=== PATIENT | male | born 1930 | race Caucasian/White ===

== ENCOUNTER 2016-08-31 10:45 | Inpatient (IN) | payer OTHER ==
[~2016-08-31] VITALS: Ht 180.3 cm; Wt 110.4 kg
[~2016-08-31 10:45] MED LIST: BACITRACIN 50,000 UNITS INJ IRRIG ONE
[2016-08-31] MEDS ORDERED: ONDANSETRON 4 MG VIAL ONE (12:07)
[2016-08-31] MEDS ORDERED: MORPHINE 2 MG/ML SYR ONE (12:08)
[2016-08-31 16:21] VITALS: BP_SYST 153; RESP 22; TEMP 98; BMI 34.0
[2016-08-31] MEDS ORDERED: METHYLPRED SOD SUCC 125 MG/2 ML VIAL ONE (16:47)
[2016-08-31] MEDS ORDERED: PANTOPRAZOLE 40 MG TAB PO PRN (18:00)
[2016-08-31] MEDS ORDERED: LACTULOSE SOLN 20GM/30ML UDC PO PRN (18:00)
[2016-08-31] MEDS ORDERED: Furosemide 40 MG TAB PO SCH (18:00)
[2016-08-31 19:24] VITALS: BP_SYST 119; RESP 16; TEMP 98.1
[2016-08-31] MEDS: LEVEMIR INSULIN SUBQ SCH (21:00)
[2016-08-31] MEDS ORDERED: ENOXAPARIN 30 MG/0.3 ML SYR SUBQ SCH (21:00)
[2016-08-31] MEDS ORDERED: DEXTROSE 50% SYRINGE 50 ML IV PRN (21:10)
[2016-08-31] MEDS ORDERED: GLUCAGON 1 MG VIAL IM PRN (21:10)
[2016-08-31] MEDS: LISINOPRIL 20 MG TAB PO SCH (22:38)
[2016-08-31] MEDS: ROSUVASTATIN 5 MG TAB PO SCH (22:38)
[2016-08-31] MEDS: SPIRONOLACTONE 25 MG TAB PO SCH (22:39)
[2016-08-31] MEDS: METOPROLOL TART 25 MG TAB PO SCH (22:39)
[2016-08-31] MEDS: Furosemide 40 MG TAB PO SCH (22:39)
[2016-08-31] MEDS: AMITRIPTYLINE 25 MG TAB PO SCH (22:39)
[2016-08-31] MEDS: TAMSULOSIN 0.4 MG CAP PO SCH (22:39)
[2016-08-31 22:59] VITALS: BP_SYST 141; RESP 18; TEMP 98.3
[2016-08-31] MEDS: MORPHINE 2 MG/ML SYR IV PRN (23:24)
[2016-09-01] VITALS (25 sets, daily range): BP systolic 88–140; RESP 14–24; TEMP 97–99.1
[2016-09-01] MEDS: MORPHINE 2 MG/ML SYR IV PRN (02:25)
[2016-09-01] MEDS ORDERED: LACT RINGERS 1,000 ML IV SCH (05:40)
[2016-09-01] MEDS ORDERED: GLYCOPYRROLATE 0.2 MG/ML VIAL IV ONE (05:40)
[2016-09-01] MEDS ORDERED: MIDAZOLAM 2 MG/2 ML INJ IV ONE (05:40)
[2016-09-01] MEDS ORDERED: CEFAZOLIN 2,000 MG in SODIUM CHLORIDE 0.9% 100 ML IV ONE (07:05)
[2016-09-01] MEDS ORDERED: MORPHINE 4 MG/ML SYR IV PRN (08:25)
[2016-09-01] MEDS ORDERED: ONDANSETRON 4 MG VIAL IV PRN ×2 (08:25→09:20)
[2016-09-01] MEDS ORDERED: MORPHINE 2 MG/ML SYR IV PRN ×2 (08:25→09:20)
[2016-09-01] MEDS ORDERED: OXYCODONE/APAP 5/325 TAB PO PRN (08:25)
[2016-09-01] MEDS: METOPROLOL TART 25 MG TAB PO SCH ×2 (09:00→21:02)
[2016-09-01] MEDS: Furosemide 40 MG TAB PO SCH ×2 (09:00→16:38)
[2016-09-01] MEDS ORDERED: ERGOCALCIFEROL 50,000 UNITS (1.25 MG) CAP PO SCH (09:00)
[2016-09-01] MEDS: SPIRONOLACTONE 25 MG TAB PO SCH ×2 (09:00→21:02)
[2016-09-01] MEDS: DOCUSATE SOD 100 MG CAP PO SCH ×2 (09:00→21:02)
[2016-09-01] MEDS ORDERED: DILAUDID 1 MG/ML AMP IV PRN (09:20)
[2016-09-01] MEDS ORDERED: OXYCODONE 5 MG TAB PO PRN (09:20)
[2016-09-01] MEDS: MORPHINE 4 MG/ML SYR IV PRN ×2 (10:29→10:46)
[2016-09-01] MEDS: CEFAZOLIN 2,000 MG in SODIUM CHLORIDE 0.9% 100 ML IV SCH ×2 (15:13→21:01)
[2016-09-01] MEDS: FLUCONAZOLE 100 MG in SODIUM CHLORIDE 0.9% 50 ML IV SCH (15:57)
[2016-09-01] MEDS: LISINOPRIL 20 MG TAB PO SCH (20:59)
[2016-09-01] MEDS: AMITRIPTYLINE 25 MG TAB PO SCH (21:02)
[2016-09-01] MEDS: ROSUVASTATIN 5 MG TAB PO SCH (21:02)
[2016-09-01] MEDS: TAMSULOSIN 0.4 MG CAP PO SCH (21:03)
[2016-09-01] MEDS: LEVEMIR INSULIN SUBQ SCH (21:21)
[2016-09-02] VITALS (10 sets, daily range): BP systolic 101–134; RESP 16–22; TEMP 97.4–98.5; Ht 180.3 cm; Wt 110.4 kg
[2016-09-02] MEDS: MORPHINE 2 MG/ML SYR IV PRN (00:52)
[2016-09-02] MEDS: CEFAZOLIN 2,000 MG in SODIUM CHLORIDE 0.9% 100 ML IV SCH ×2 (02:03→10:57)
[2016-09-02] MEDS: OXYCODONE/APAP 5/325 TAB PO PRN ×3 (02:09→22:02)
[2016-09-02] MEDS: FLUCONAZOLE 100 MG in SODIUM CHLORIDE 0.9% 50 ML IV SCH (09:25)
[2016-09-02] MEDS: SPIRONOLACTONE 25 MG TAB PO SCH ×2 (09:25→22:00)
[2016-09-02] MEDS: Furosemide 40 MG TAB PO SCH ×2 (09:26→16:47)
[2016-09-02] MEDS: DOCUSATE SOD 100 MG CAP PO SCH ×2 (09:26→22:00)
[2016-09-02] MEDS: METOPROLOL TART 25 MG TAB PO SCH ×2 (09:26→21:59)
[2016-09-02] MEDS: MICONAZOLE 2% PWD TOPICAL SCH ×2 (11:38→22:04)
[2016-09-02] MEDS: ROSUVASTATIN 5 MG TAB PO SCH (21:59)
[2016-09-02] MEDS: AMITRIPTYLINE 25 MG TAB PO SCH (21:59)
[2016-09-02] MEDS: LISINOPRIL 20 MG TAB PO SCH (22:00)
[2016-09-02] MEDS: TAMSULOSIN 0.4 MG CAP PO SCH (22:00)
[2016-09-02] MEDS: LEVEMIR INSULIN SUBQ SCH (22:01)
[2016-09-03] VITALS (18 sets, daily range): BP systolic 113–165; RESP 16–22; TEMP 97.1–98.6
[2016-09-03] MEDS: SPIRONOLACTONE 25 MG TAB PO SCH ×2 (08:08→21:55)
[2016-09-03] MEDS: Furosemide 40 MG TAB PO SCH ×2 (08:08→16:26)
[2016-09-03] MEDS: METOPROLOL TART 25 MG TAB PO SCH ×2 (08:08→21:55)
[2016-09-03] MEDS: DOCUSATE SOD 100 MG CAP PO SCH ×2 (08:08→21:00)
[2016-09-03] MEDS: FLUCONAZOLE 100 MG in SODIUM CHLORIDE 0.9% 50 ML IV SCH (08:08)
[2016-09-03] MEDS: MICONAZOLE 2% PWD TOPICAL SCH ×2 (08:17→22:02)
[2016-09-03] MEDS: TAMSULOSIN 0.4 MG CAP PO SCH (21:55)
[2016-09-03] MEDS: LISINOPRIL 20 MG TAB PO SCH (21:55)
[2016-09-03] MEDS: AMITRIPTYLINE 25 MG TAB PO SCH (21:56)
[2016-09-03] MEDS: ROSUVASTATIN 5 MG TAB PO SCH (21:56)
[2016-09-03] MEDS: LEVEMIR INSULIN SUBQ SCH (21:57)
[2016-09-04] VITALS (8 sets, daily range): BP systolic 107–134; RESP 16–22; TEMP 97.4–98.3
[2016-09-04] MEDS ORDERED: MISSING DOSE XX ONE (08:00)
[2016-09-04] MEDS: Furosemide 40 MG TAB PO SCH ×2 (08:15→16:44)
[2016-09-04] MEDS: METOPROLOL TART 25 MG TAB PO SCH ×2 (08:15→21:00)
[2016-09-04] MEDS: SPIRONOLACTONE 25 MG TAB PO SCH ×2 (08:15→21:00)
[2016-09-04] MEDS: DOCUSATE SOD 100 MG CAP PO SCH ×2 (08:15→20:16)
[2016-09-04] MEDS: FLUCONAZOLE 100 MG TAB PO SCH (08:16)
[2016-09-04] MEDS: MICONAZOLE 2% PWD TOPICAL SCH ×2 (08:18→21:00)
[2016-09-04] MEDS: OXYCODONE/APAP 5/325 TAB PO PRN (16:44)
[2016-09-04] MEDS: LISINOPRIL 20 MG TAB PO SCH (21:00)
[2016-09-04] MEDS: ROSUVASTATIN 5 MG TAB PO SCH (21:00)
[2016-09-04] MEDS: AMITRIPTYLINE 25 MG TAB PO SCH (21:00)
[2016-09-04] MEDS: TAMSULOSIN 0.4 MG CAP PO SCH (21:00)
[2016-09-04] MEDS: LEVEMIR INSULIN SUBQ SCH (22:58)
[2016-09-05 02:00] VITALS: BP_SYST 152; RESP 16; TEMP 97.8
[2016-09-05 07:27] VITALS: BP_SYST 134; RESP 18; TEMP 97.5
[2016-09-05] MEDS: SPIRONOLACTONE 25 MG TAB PO SCH ×2 (08:09→22:12)
[2016-09-05] MEDS: FLUCONAZOLE 100 MG TAB PO SCH (08:09)
[2016-09-05] MEDS: Furosemide 40 MG TAB PO SCH ×2 (08:09→17:26)
[2016-09-05] MEDS: DOCUSATE SOD 100 MG CAP PO SCH ×2 (08:09→22:11)
[2016-09-05] MEDS: METOPROLOL TART 25 MG TAB PO SCH ×2 (08:09→21:00)
[2016-09-05] MEDS: MICONAZOLE 2% PWD TOPICAL SCH ×2 (08:10→22:13)
[2016-09-05] MEDS: OXYCODONE/APAP 5/325 TAB PO PRN ×3 (08:16→17:26)
[2016-09-05 11:28] VITALS: BP_SYST 105; RESP 18; TEMP 97.5
[2016-09-05 15:00] VITALS: BP_SYST 121; RESP 20; TEMP 97.6
[2016-09-05 19:15] VITALS: BP_SYST 94; RESP 18; TEMP 98.2
[2016-09-05] MEDS ORDERED: SALINE FLUSH 10 ML FLUSH PRN (19:40)
[2016-09-05] MEDS ORDERED: SODIUM CHLORIDE 0.9% FLUSH BAG 500 ML IV PRN (19:40)
[2016-09-05] MEDS: LISINOPRIL 20 MG TAB PO SCH (21:00)
[2016-09-05] MEDS: ROSUVASTATIN 5 MG TAB PO SCH (22:11)
[2016-09-05] MEDS: AMITRIPTYLINE 25 MG TAB PO SCH (22:12)
[2016-09-05] MEDS: SALINE FLUSH 10 ML FLUSH SCH (22:12)
[2016-09-05] MEDS: LEVEMIR INSULIN SUBQ SCH (22:12)
[2016-09-05] MEDS: TAMSULOSIN 0.4 MG CAP PO SCH (22:12)
[2016-09-05 22:42] VITALS: BP_SYST 118; RESP 16; TEMP 97.2
[2016-09-06 02:42] VITALS: BP_SYST 127; RESP 16; TEMP 98.1
[2016-09-06 07:50] VITALS: BP_SYST 172; RESP 18; TEMP 98.9
[2016-09-06] MEDS: FLUCONAZOLE 100 MG TAB PO SCH (08:49)
[2016-09-06] MEDS: METOPROLOL TART 25 MG TAB PO SCH (08:49)
[2016-09-06] MEDS: SALINE FLUSH 10 ML FLUSH SCH (08:49)
[2016-09-06] MEDS: DOCUSATE SOD 100 MG CAP PO SCH (08:50)
[2016-09-06] MEDS: SPIRONOLACTONE 25 MG TAB PO SCH (08:50)
[2016-09-06] MEDS: Furosemide 40 MG TAB PO SCH (08:50)
[2016-09-06] MEDS: MICONAZOLE 2% PWD TOPICAL SCH (08:51)
[2016-09-06] MEDS: OXYCODONE/APAP 5/325 TAB PO PRN (08:57)
[2016-09-06 10:19] VITALS: BP_SYST 172; RESP 18; TEMP 98.9
[2016-09-06 11:32] VITALS: BP_SYST 93; RESP 18; TEMP 98.8
== END 2016-09-06 16:37 | DRG 481 ==
LOC: ENRESERVTM → ENRESERVDT → ER 10:45 → ENPENDDIS 14:21 → EMR 14:21 → 2NO 15:59
PROVIDERS: ADMIT Internal Medicine; ATTEND Internal Medicine
PROC: 0QH806Z Insertion of Intramedullary Internal Fixation Device into Right Femoral Shaft, Open Approach (ICD-10-PCS; principal; 2016-09-01 08:32)
DX: S72.401A Unspecified fracture of lower end of right femur, initial encounter for closed fracture (principal); I13.0 Hypertensive heart and chronic kidney disease with heart failure and stage 1 through stage 4 chronic kidney disease, or unspecified chronic kidney disease; E11.22 Type 2 diabetes mellitus with diabetic chronic kidney disease; N18.3 Chronic kidney disease, stage 3 (moderate); I50.9 Heart failure, unspecified; I48.91 Unspecified atrial fibrillation; J44.9 Chronic obstructive pulmonary disease, unspecified; B37.2 Candidiasis of skin and nail; D62 Acute posthemorrhagic anemia; R44.3 Hallucinations, unspecified; W18.30XA Fall on same level, unspecified, initial encounter; Y92.002 Bathroom of unspecified non-institutional (private) residence as the place of occurrence of the external cause; Z85.46 Personal history of malignant neoplasm of prostate; Z79.84 Long term (current) use of oral hypoglycemic drugs; Z79.01 Long term (current) use of anticoagulants; Z79.4 Long term (current) use of insulin
CPT/HCPCS: 36415; 36430; 51702; 70450; 71010; 76000; 80048; 80053; 80061; 81001; 82947; 83036; 83540; 85014; 85018; 85025; 85610; 85730; 86850; 86900; 86901; 86923; 93005; 94762; 94799; 96374; 96375; 99223; 99232; 99233; 99239